=== PATIENT | male | born 1940 | race Caucasian/White ===

== ENCOUNTER 2018-12-22 11:11 | Inpatient (IN) | payer MEDICARE ==
[~2018-12-22] VITALS: Ht 180.3 cm; Wt 83.9 kg
--- NOTE | 2018-12-22 11:29 | PHYS DOC ---
Past History Past Medical History: A-Fib, CAD, COPD, Hypertension, Other Additional Past Medical Histor: sleep apnea Smoking: Quit Greater Than 1 Year Alcohol Use: None Drug Use: None Adult General Chief Complaint Chief Complaint: PSYCH EVALUATION HPI HPI Patient is a 78-year-old male presents for clearance for mental health. Patient has been going through some difficult times recently, his (of 3 years) left him approximately 4 weeks ago, and had to put his dog to sleep. Dog was 17 years old. He is currently living with family. He voices both self-harm and harm of others ideation. No specific target. No plan as to how he would hurt himself or others. Denies any hallucinations. Symptoms are moderate in intensity. Per daughter-in law, he has had increased sleeping, decreased mjsx-rohbqut-lye only showered once since living with son and boszudye-rk-uag, poorly compliant with home medication. Vzghrria-ty-vua also says has been gone for several months. [] Review of Systems Review of Systems Constitutional: Denies fever or chills [] Eyes: Denies change in visual acuity, redness, or eye pain [] HENT: Denies nasal congestion or sore throat [] Respiratory: Denies change in his chronic cough or shortness of breath [] Cardiovascular: No chest pain or palpitations[] GI: Denies abdominal pain, nausea, vomiting, bloody stools or diarrhea [] : Denies dysuria or hematuria [] Musculoskeletal: Denies back pain or joint pain [] Integument: Denies rash or skin lesions [] Neurologic: Denies headache, focal weakness or sensory changes [] Endocrine: Denies polyuria or polydipsia [] All other systems were reviewed and found to be within normal limits, except as documented in this note. Physical Exam Physical Exam Constitutional: Well developed, well nourished, no acute distress, non-toxic appearance. [] HENT: Normocephalic, atraumatic, bilateral external ears normal, oropharynx moist, no oral exudates, nose normal. [] Eyes: PERRLA, EOMI, conjunctiva normal, no discharge. [] Neck: Normal range of motion, no tenderness, supple, no stridor. [] Cardiovascular:Heart rate in the normal range with an irregular rhythm, no murmur [] Lungs & Thorax: Bilateral breath sounds clear to auscultation [] Abdomen: Bowel sounds normal, soft, no tenderness, no masses, no pulsatile masses. [] Skin: Warm, dry, no erythema, no rash. [] Back: No tenderness, no CVA tenderness. [] Extremities: No tenderness, no cyanosis, no clubbing, ROM intact, no edema. [] Neurologic: Alert and oriented X 3, normal motor function, normal sensory function, no focal deficits noted. [] Psychologic: Affect flat, judgement normal, mood depressed. [] EKG EKG EKG shows an irregular rhythm, rate of 85, normal axis, QTC of 490 ms, no ST elevations. No old EKG available for comparison. Interpreted by me at 1126[] Radiology/Procedures Radiology/Procedures [] Course & Med Decision Making Course & Med Decision Making Pertinent Labs and Imaging studies reviewed. (See chart for details) ED course: Patient arrived, was placed in bed, and tolerated exam well. He was given a meal tray which she tolerated without any nausea or vomiting. After the return of laboratory studies, these were discussed with patient and his bdaolzxm-er-zkp who voiced understanding. Klnmanlq-mq-twg says that he does not take his medicine on a regular basis. Consultation was made through tele-psych. 1330: Patient is questioned with tele-psychiatry. Report is made that."... He is unable to contract for safety at this time, has multiple risk factors, and should be transferred to an inpatient psychiatric facility for further evaluation and stabilization. He is willing to go voluntarily, but would meet criteria for involuntary admission if" (sic) 1430: Patient accepted by [facility] Medical decision making: Patient with evidence of depression as well as self- harm and harm of others ideation. He appears to be medically stable. He is noted to be mildly anemic but not grossly so. His INR is also noted to be elevated but this does not require urgent attention at this time.[] Dragon Disclaimer Dragon Disclaimer This electronic medical record was generated, in whole or in part, using a voice recognition dictation system. Departure Departure: Impression: Primary Impression: Suicidal ideation Additional Impressions: Atrial fibrillation Supratherapeutic INR Disposition: ADMITTED INPATIENT Admitting Physician: Other Condition: IMPROVED Referrals: EZEQUIEL GONZALES MD (PCP) Problem Qualifiers Additional Impressions: Atrial fibrillation Atrial fibrillation type: unspecified Qualified Codes: I48.91 - Unspecified atrial fibrillation JENNIFER BONNER DO Dec 22, 2018 11:28
[2018-12-22 12:03] LABS: BASO % 1 % (0-3); EOS # 0.1 x10^3/uL (0.0-0.7); EOS % 1 % (0-3); HEMATOCRIT 35.5 % (39.0-53.0); LYMPH # 0.9 x10^3/uL (1.0-4.8); LYMPH % 21 % (24-48); MEAN CORPUSCULAR HEMOGLOBIN 34 pg (25-35); MEAN CORPUSCULAR HGB CONC 34 g/dL (31-37); MEAN CORPUSCULAR VOLUME 100 fL (79-100); MONO # 0.4 x10^3/uL (0.0-1.1); MONO % 8 % (0-9); NEUT # 3.1 x10^3uL (1.8-7.7); NEUT % 69 % (31-73); PLATELET COUNT 103 x10^3/uL (140-400); RED BLOOD COUNT 3.54 x10^6/uL (4.30-5.70); RED CELL DISTRIBUTION WIDTH 15.1 % (11.5-14.5); WHITE BLOOD COUNT 4.5 x10^3/uL (4.0-11.0)
[2018-12-22 12:11] LABS: BARBITURATES NEG (NEG); BENZODIAZEPINES NEG (NEG); CANNABINOIDS NEG (NEG); COCAINE NEG (NEG); METHADONE NEG (NEG); OPIATES NEG (NEG); PHENCYCLIDINE NEG (NEG)
[2018-12-22 12:16] LABS: AMPHETAMINE/METHAMPHETAMINE NEG (NEG)
[2018-12-22 12:16] LABS: ACETAMIN < 2.0 mcg/mL (10-30); ALBUMIN 3.7 g/dL (3.4-5.0); ALBUMIN/GLOBULIN RATIO 1.2 (1.0-1.7); CALCIUM 8.7 mg/dL (8.5-10.1); CREATININE 1.2 mg/dL (0.7-1.3); ETHANOL < 10 mg/dL (0-10); GFR 58.3; MAGNESIUM 2.2 mg/dL (1.8-2.4); POTASSIUM 4.2 mmol/L (3.5-5.1); SALIC 1.1 mg/dL (2.8-20.0); TOTAL BILIRUBIN 0.7 mg/dL (0.2-1.0); TOTAL PROTEIN 6.8 g/dL (6.4-8.2)
[2018-12-22 12:20] LABS: BACTERIA,URINE 0 /HPF (0-FEW); BILIRUBIN,URINE SMALL (NEG); CLARITY,URINE HAZY; COLOR,URINE AMBER; GLUCOSE,URINE NEG (NEG); NITRITE,URINE NEG (NEG); RBC,URINE RARE /HPF (0-2); SQUAMOUS EPITHELIAL CELL,UR OCC /LPF; UROBILINOGEN,URINE 0.2 mg/dL (0.2 mg/dL); WBC,URINE 0 /HPF (0-4)
--- NOTE | 2018-12-22 15:45 | EKG ---
[address] [address] Test Date: 2018-12-22 Test Time: 11:24:30 Pat Name: RAINA ENCINAS Department: Room: Gender: M Campaign Advisor: RAY : 1940 Requested By: JENNIFER BONNER Order Number: [id number] Reading MD: Jose Ledesma Measurements Intervals [place] Rate: 85 P: OR: QRS: 33 QRSD: 90 T: 23 QT: 412 QTc: 490 Interpretive Statements ATRIAL FIBRILLATION LOW LIMB LEAD VOLTAGE PROLONGED QT Electronically Signed On 01-03-2019 16:10:08 CDT by Jose Ledesma
[2018-12-22 16:58] VITALS: BP 112/71
[2018-12-22] MEDS ORDERED: METHYL SALICYLATE/MENTHOL TOPICAL OINTMENT 57GM TUBE. TP PRN (17:30)
[2018-12-22] MEDS ORDERED: MAGNESIUM HYDROXIDE 2,400 MG/30 ML ORAL.SUSP. PO PRN (17:30)
[2018-12-22] MEDS ORDERED: ACETAMINOPHEN 325 MG TABLET PO PRN (17:30)
[2018-12-22] MEDS ORDERED: FURO-69 PO (18:32)
[2018-12-22] MEDS ORDERED: FLUT1BLS IH (18:32)
[2018-12-22] MEDS ORDERED: METO-247 PO (18:32)
[2018-12-22] MEDS ORDERED: traMADol 50 MG TABLET PO PRN (19:45)
[2018-12-22] MEDS ORDERED: NITROGLYCERIN SUBLINGUAL 0.4 MG BOTTLE OF 25. SL PRN (19:45)
[2018-12-22] MEDS ORDERED: TRAM50TA PO (19:48)
[2018-12-22] MEDS ORDERED: WARF4TAB64 PO (19:48)
[2018-12-22] MEDS ORDERED: RAMI2.5C2 PO (19:48)
[2018-12-22] MEDS ORDERED: WARF2TAB96 PO (19:48)
[2018-12-22] MEDS ORDERED: ALBU2.5V5 NEB (19:48)
[2018-12-22] MEDS ORDERED: NITR0.4T22 SL (19:48)
[2018-12-22] MEDS ORDERED: METF500T16 PO (19:48)
[2018-12-22] MEDS ORDERED: WARF-31 PO (19:48)
[2018-12-22] MEDS ORDERED: RANO10002 PO (19:48)
[2018-12-22] MEDS ORDERED: CRESTOR10 MG PO (19:48)
[2018-12-22] MEDS ORDERED: ALBUTEROL SULFATE 2.5 MG/3 ML NEBU. NEB SCH (21:00)
[2018-12-22] MEDS: METOPROLOL SUCC 24HR ER 50 MG TAB.ER.24H. PO SCH (21:29)
[2018-12-22] MEDS: ATORVASTATIN CALCIUM 20 MG TABLET PO SCH (21:30)
--- NOTE | 2018-12-22 21:45 | PDOC ---
Exam Note: Scott Note: Please also refer to the separate dictated note~for this date of service dictated separately. Discussed the patient with Nursing staff reviewed the chart.~Reviewed interim history and current functioning. Reviewed vital signs,~Labs/ Radiology~and current medications noted below. Continue current treatment with the changes noted in the dictated addendum note Assessment: Vital Signs/I&O: Vital Signs Date Time Temp Pulse Resp B/P (MAP) Pulse Ox O2 Delivery O2 Flow Rate FiO2 12/22/18 21:30 67 112/71 12/22/18 16:58 97.7 16 97 12/22/18 11:19 Room Air Labs: Laboratory Tests Test 12/22/18 11:25 12/22/18 11:44 Urine Collection Type Unknown Urine Color [place] Urine Clarity Hazy Urine pH 5.5 Urine Specific [place] 1.025 Urine Protein Trace (NEG-TRACE) Urine Glucose (UA) Neg mg/dL (NEG) Urine Ketones (Stick) 15 mg/dL (NEG) Urine Blood Neg (NEG) Urine Nitrite Neg (NEG) Urine Bilirubin Small (NEG) Urine Urobilinogen Dipstick 0.2 mg/dL (0.2 mg/dL) Urine Leukocyte Esterase Neg (NEG) Urine RBC Rare /HPF (0-2) Urine WBC 0 /HPF (0-4) Urine Squamous Epithelial Cells Occ /LPF Urine Bacteria 0 /HPF (0-FEW) Urine Mucus Mod /LPF Urine Opiates Screen Neg (NEG) Urine Methadone Screen Neg (NEG) Urine Barbiturates Neg (NEG) Urine Phencyclidine Screen Neg (NEG) Urine Amphetamine/Methamphetamine Neg (NEG) Urine Benzodiazepines Screen Neg (NEG) Urine Cocaine Screen Neg (NEG) Urine Cannabinoids Screen Neg (NEG) Urine Ethyl Alcohol Neg (NEG) White Blood Count 4.5 x10^3/uL (4.0-11.0) Red Blood Count 3.54 x10^6/uL (4.30-5.70) L Hemoglobin 12.0 g/dL (13.0-17.5) L Hematocrit 35.5 % (39.0-53.0) L Mean Corpuscular Volume 100 fL (79-100) Mean Corpuscular Hemoglobin 34 pg (25-35) Mean Corpuscular Hemoglobin Concent 34 g/dL (31-37) Red Cell Distribution Width 15.1 % (11.5-14.5) H Platelet Count 103 x10^3/uL (140-400) L Neutrophils (%) (Auto) 69 % (31-73) Lymphocytes (%) (Auto) 21 % (24-48) L Monocytes (%) (Auto) 8 % (0-9) Eosinophils (%) (Auto) 1 % (0-3) Basophils (%) (Auto) 1 % (0-3) Neutrophils # (Auto) 3.1 x10^3uL (1.8-7.7) Lymphocytes # (Auto) 0.9 x10^3/uL (1.0-4.8) L Monocytes # (Auto) 0.4 x10^3/uL (0.0-1.1) Eosinophils # (Auto) 0.1 x10^3/uL (0.0-0.7) Basophils # (Auto) 0.0 x10^3/uL (0.0-0.2) Prothrombin Time 41.9 SEC (9.4-11.4) H Prothrombin Time INR 4.0 (0.9-1.1) H Activated Partial Thromboplast Time 41 SEC (23-33) H Sodium Level 137 mmol/L (136-145) Potassium Level 4.2 mmol/L (3.5-5.1) Chloride Level 101 mmol/L (98-107) Carbon Dioxide Level 26 mmol/L (21-32) Anion Gap 10 (6-14) Blood Urea Nitrogen 18 mg/dL (8-26) Creatinine 1.2 mg/dL (0.7-1.3) Estimated GFR (Cockcroft-Gault) 58.3 BUN/Creatinine Ratio 15 (6-20) Glucose Level 105 mg/dL (70-99) H Calcium Level 8.7 mg/dL (8.5-10.1) Magnesium Level 2.2 mg/dL (1.8-2.4) Total Bilirubin 0.7 mg/dL (0.2-1.0) Aspartate Amino Transferase (AST) 23 U/L (15-37) Alanine Aminotransferase (ALT) 16 U/L (16-63) Alkaline Phosphatase 66 U/L (46-116) Total Protein 6.8 g/dL (6.4-8.2) Albumin 3.7 g/dL (3.4-5.0) Albumin/Globulin Ratio 1.2 (1.0-1.7) Salicylates Level 1.1 mg/dL (2.8-20.0) L Salicylate Last Dose Date Unknown Salicylate Last Dose Time Unknown Acetaminophen Level < 2.0 mcg/mL (10-30) L Acetaminophen Last Dose Date Unknown Acetaminophen Last Dose Time Unknown Ethyl Alcohol Level < 10 mg/dL (0-10) Current Medications: Meds: Current Medications Medications (Trade) Dose Ordered Sig/Emily Route PRN Reason Start Time Stop Time Status Last Admin Dose Admin Metoprolol Succinate (Toprol Xl) 100 mg QHS PO 12/22/18 21:00 12/22/18 21:30 Atorvastatin Calcium (Lipitor) 40 mg QHS PO 12/22/18 21:00 12/22/18 21:30 I have reviewed the current psychotropics carefully including drug interactions. Risk benefit ratio favors no change other than as noted in my dictated progress note. Diagnosis: Problems: (1) Anxiety disorder (2) Major depressive disorder, recurrent episode (3) Impulse control disorder RICCARDO YADAV MD Dec 22, 2018 21:45
[2018-12-22] MEDS: RANOLAZINE 500 MG TAB.ER.12H PO SCH (21:56)
[2018-12-23 02:09] LABS: HEMOGLOBIN A1C 5.6 % (4.8-5.6); THYROXINE 7.3 ug/dL (4.5-12.0)
[2018-12-23] MEDS: ALBUTEROL SULFATE 2.5 MG/3 ML NEBU. NEB SCH ×4 (04:53→20:33)
[2018-12-23] MEDS ORDERED: IPRATRPIUM/ALBUTEROL 0.5/2.5MG 3 ML NEBU. ONE (05:04)
[2018-12-23 06:31] VITALS: BP 113/70
[2018-12-23] MEDS: LISINOPRIL 5 MG TABLET. PO SCH (07:54)
[2018-12-23] MEDS: SERTRALINE 50 MG TABLET. PO SCH (07:54)
[2018-12-23] MEDS: FUROSEMIDE 20 MG TABLET PO SCH (07:55)
[2018-12-23] MEDS: RANOLAZINE 500 MG TAB.ER.12H PO SCH ×2 (07:56→19:37)
[2018-12-23] MEDS ORDERED: NON FORMULARY ITEM (Fluticasone/Vilanterol (Breo Ellipta 200-25 Mcg INH) 1 PUFF) IH SCH (09:00)
[2018-12-23] MEDS ORDERED: FLU VAX QS 2019-20 (36MOS+)/PF 0.5 ML SYRINGE. VAX IM ONE (09:00)
[2018-12-23] MEDS: BUDESONIDE 0.5 MG/2 ML NEBU NEB SCH ×2 (11:07→20:33)
[2018-12-23 13:13] LABS: THYROID STIM HORMONE (TSH) 1.242 uIU/mL (0.358-3.740)
--- NOTE | 2018-12-23 13:17 | HP ---
ADMIT DATE: 12/22/2018 PSYCHIATRIC ADMISSION HISTORY AND EVALUATION This is a late entry, date of service 12/22, covers elements not covered in my initial note. IDENTIFYING DATA: The patient is an 78-year-old male referred from the Emergency Room at [facility] after he had a telepsychiatry consultation on account of worsening symptoms of depression with suicidal ideation within the context of psychosocial stressors of separation from his pending a divorce. Initially, the family had contacted us concerned about his suicidal ideation and worsening symptoms of depression as the patient had moved in with his son in [place], [place] and was voicing suicidal ideation consequent to the separation and pending divorce. He then presented to the Emergency Room at [facility], was medically cleared, telepsychiatry recommended inpatient psychiatric stabilization. CHIEF COMPLAINT: "Yes, I have been depressed. She was much younger than me and we had agreed that I could not do activities and things like she wanted to and that she should find someone else, but it has been very difficult. Yes, I said I wanted to end my life." HISTORY OF PRESENT ILLNESS: The patient relates symptoms of depression, feeling hopeless, helpless, worthless, anger, irritability, sleep disturbance consequent to the above stressors in his own failing health. No clear history of bipolar disorder or homicidal ideation. No clear psychotic symptoms. He does have some short-term memory deficits, but reasonably cognitively intact. PAST PSYCHIATRIC HISTORY: As above. MEDICAL HISTORY: COPD, asthma, coronary artery disease, atrial fibrillation, pacemaker, arthritis, hearing loss, CHF, obesity, obstructive sleep apnea with CPAP and oxygen at night. ACCU-CHEKS: None. DIET: Cardiac. MEDICATIONS: Takes it whole. AMBULATES: Uses cane at home, independent with walker. UA 12/22 was negative. ALLERGIES: Negative. FAMILY HISTORY: Noncontributory. SOCIAL HISTORY: He does admit to using heavy alcohol at a much younger age, but nothing recently. No blackouts, DUIs, DTs or shakes. No physical, sexual or elder abuse history is noted. Not known to be a perpetrator. REACTION TO HOSPITALIZATION: The patient accepting of it. ASSETS: Supportive family, reasonably cognitively intact. MENTAL STATUS EXAMINATION: The patient was seen individually evening of 12/22. He is reasonably oriented. Speech coherent, abstraction fair, computation impaired, language function intact, attention span short. Mood and affect depressed, withdrawn. He denies active thoughts of wanting to end his life. He talked at length about working at the [employer] until he retired approximately in 1993. LABORATORY DATA: Reviewed. IMPRESSION: Major depressive disorder, recurrent with suicidal ideation; anxiety disorder, unspecified; mild cognitive impairment. Rest as above. PLAN: Admit to Geropsychiatry Unit at [facility]. I will see the patient daily individually from a psychiatric standpoint. Medical followup with Dr. Willard. We will start Zoloft 50 mg a day for mood symptoms. Make further adjustments as clinically indicated. May use Remeron or trazodone if insomnia is problematic. ESTIMATED LENGTH OF STAY: 10-12 days. DISPOSITION: Plans back with family with outpatient treatment at the [facility] in [place]. MAN Renetta YADAV MD DR: MANPREET/alejandro JOB#: [id number] / [id number]
[2018-12-23] MEDS ORDERED: WARFARIN 5 MG TABLET. PO SCH (16:00)
[2018-12-23] MEDS: metFORMIN 500 MG TABLET PO SCH (17:00)
[2018-12-23] MEDS ORDERED: CHOLECALCIFEROL (VITAMIN D3) 50,000 UNIT CAPSULE PO SCH (17:15)
[2018-12-23 17:16] VITALS: BP 117/74
[2018-12-23] MEDS: ATORVASTATIN CALCIUM 20 MG TABLET PO SCH (19:38)
[2018-12-23] MEDS: METOPROLOL SUCC 24HR ER 50 MG TAB.ER.24H. PO SCH (19:38)
--- NOTE | 2018-12-23 22:08 | PDOC ---
Exam Note: Scott Note: Please also refer to the separate dictated note~for this date of service dictated separately.~Patient seen individually. Discussed the patient with Nursing staff reviewed the chart.~Reviewed interim history and current functioning. Reviewed vital signs,~Labs/ Radiology~and current medications noted below. Continue current treatment with the changes noted in the dictated addendum note Assessment: Vital Signs/I&O: Vital Signs Date Time Temp Pulse Resp B/P (MAP) Pulse Ox O2 Delivery O2 Flow Rate FiO2 12/23/18 20:35 95 Room Air 12/23/18 19:38 100 117/74 12/23/18 17:16 97.1 16 12/23/18 11:12 1.5 I & O 12/22/18 12/22/18 12/23/18 15:00 23:00 07:00 Intake Total 240 ml 120 ml Balance 240 ml 120 ml Current Medications: Meds: Current Medications Medications (Trade) Dose Ordered Sig/Emily Route PRN Reason Start Time Stop Time Status Last Admin Dose Admin Furosemide (Lasix) 20 mg DAILY PO 12/23/18 09:00 12/23/18 07:55 Metformin HCl (Glucophage) 500 mg DAILYWSUP PO 12/23/18 17:00 12/23/18 18:05 Lisinopril (Prinivil) 5 mg DAILY PO 12/23/18 09:00 12/23/18 07:55 Albuterol Sulfate (Ventolin) 2.5 mg RTQID NEB 12/23/18 08:00 12/23/18 20:35 Budesonide (Pulmicort) 0.5 mg RTBID NEB 12/23/18 08:00 12/23/18 20:35 Sertraline HCl (Zoloft) 50 mg DAILY PO 12/23/18 09:00 12/23/18 07:55 Influenza Virus Vaccine Quadrival (Afluria Quad 2019-20 (3yr Up) Syringe) 0.5 ml ONCE ONCE VAX IM 12/23/18 09:00 12/23/18 09:01 DC 12/23/18 11:08 Warfarin Sodium (Coumadin Per Pharmacy) 1 each PRN DAILY PRN MC SEE COMMENTS 12/23/18 13:45 12/23/18 14:03 I have reviewed the current psychotropics carefully including drug interactions. Risk benefit ratio favors no change other than as noted in my dictated progress note. Diagnosis: Problems: (1) Anxiety disorder (2) Major depressive disorder, recurrent episode (3) Impulse control disorder RICCARDO YADAV MD Dec 23, 2018 22:08
--- NOTE | 2018-12-24 02:48 | CONS ---
DATE OF CONSULTATION: HISTORY OF PRESENT ILLNESS: The patient is an 78-year-old male patient referred from the Emergency Room of [facility] after he had a tele-psychiatry consultation in account of worsening symptoms of depression, suicidal ideation within the context of psychosocial stressors of separation from his and pending divorce. The patient stated that he has been depressed. His is much younger than him and they agreed that he could not do activities and things like she wanted and that she would find someone else, but obviously has been very difficult for him and he did state that he did indeed wanted to end his life. PAST MEDICAL HISTORY: Significant for COPD, bronchial asthma, coronary artery disease, atrial fibrillation with congestive heart failure, morbid obesity, obstructive sleep apnea, on CPAP. He also has generalized osteoarthritis and underwent permanent pacemaker placement. ALLERGIES: He has no known drug allergies. FAMILY HISTORY: Noncontributory. SOCIAL HISTORY: He apparently in the process of his and now moved to live with his son in [place], [place]. He used to be a heavy alcohol drinker at younger age, but does nothing recently. He does not smoke or use any drugs. ALLERGIES: He has no known drug allergies. MEDICATIONS: He is currently on following medications: He is on albuterol sulfate 2.5 mg by nebulizer 3 times a day, warfarin 2 mg daily and warfarin 4 mg. He continues to be on ranolazine for Ranexa 1000 mg twice a day, Crestor 10 mg at bedtime, nitroglycerin 0.4 mg sublingual every 5 minutes x3. He is also on metoprolol succinate 100 mg extended release 1 tablet once a day and ramipril 2.5 mg daily, tramadol 50 mg every 6 hours, furosemide 20 mg once a day, fluticasone for Breo Ellipta 1 inhalation once a day and metformin 500 mg daily. REVIEW OF SYSTEMS: As per history of present illness. PHYSICAL EXAMINATION GENERAL: When I examined him, patient looked well and was clearly in no apparent respiratory distress. He was somewhat pale, but no jaundice, cyanosis, lymphadenopathy or thyromegaly. No jugular venous distention, but marked bilateral lower limb edema. In fact, the swelling extends all the way to his sacrum. HEAD, EYES, EARS, NOSE AND THROAT: Showed normocephalic, atraumatic. NECK: Supple. HEART: Showed normal first and second heart sounds. No murmurs. CHEST: Clear to auscultation. No crepitation or rhonchi. ABDOMEN: Distended, soft, nontender. No guarding or rigidity. No organomegaly. All hernial orifice intact. Bowel sounds normal. NEUROLOGIC: He is awake, alert, responding appropriately. All cranial nerves intact. EXTREMITIES: He moves extremities without difficulty, ambulates with a walker. LABORATORY DATA: Showed a white cell count of 4500, hemoglobin 12, hematocrit 36, MCV 100, and platelet count of 103,000. His prothrombin time was 41.9, INR of 4, aPTT was 41. His chemistry showed serum sodium 137, potassium 4.2, chloride 101, bicarbonate 26, anion gap of 10, BUN 18, creatinine 1.2, estimated GFR was 58 mL per minute, his glucose 105. Hemoglobin A1c was 5.6%. His calcium was 8.7, magnesium 2.2. Serum iron 68, TIBC was 293 and total iron saturation was 23. Total bilirubin, AST, ALT, alkaline phosphatase were normal. Total protein 6.8, albumin was 3.7. His 25-hydroxyvitamin D was 23. However, his TSH, T3 and T4 are all within normal range. His urinalysis showed the urine was hazy with a pH of 5.5, specific gravity 1.025. There was trace of protein, negative for glucose, trace of ketones, negative for blood, nitrite and leukocyte esterase. There are no rbc's, no wbc's, and no bacteria. His tox screen was essentially negative. His treponema pallidum antibodies were nonreactive. IMPRESSION: In summary, patient was admitted on account of worsening symptoms of depression with suicidal ideation within the context of psychosocial stressors, separation from his pending a divorce. [facility]. Medically, he has a multitude of medical problems including chronic obstructive pulmonary disease, morbid obesity, obstructive sleep apnea, on CPAP. He is known to have coronary artery disease, atrial fibrillation and congestive heart failure, has also generalized osteoarthritis. Clinically, he seemed to be in congestive heart failure, has bilateral basal crepitation and severe generalized anasarca. His vital signs seem to be all stable as well as his chemistry. He does have vitamin D deficiency for which I started him on cholecalciferol 50,000 international unit once a week. He is only on 20 mg of Lasix that could definitely increase. PLAN: My plan is to continue with his current medication for now. His INR is supratherapeutic, so Coumadin will be on hold and the pharmacy will adjust Coumadin as needed. Thank you Dr. Craig for allowing me to participate in the care of this patient. WILLIE HERRERA MD DR: SAEID/alejandro JOB#: [id number] / [id number]
[2018-12-24 05:06] VITALS: BP 119/71
[2018-12-24] MEDS: ALBUTEROL SULFATE 2.5 MG/3 ML NEBU. NEB SCH ×4 (05:12→20:20)
[2018-12-24] MEDS: LISINOPRIL 5 MG TABLET. PO SCH (08:06)
[2018-12-24] MEDS: RANOLAZINE 500 MG TAB.ER.12H PO SCH ×2 (08:06→20:23)
[2018-12-24] MEDS: SERTRALINE 50 MG TABLET. PO SCH (08:06)
[2018-12-24] MEDS: FUROSEMIDE 20 MG TABLET PO SCH (08:06)
[2018-12-24] MEDS: CHOLECALCIFEROL (VITAMIN D3) 50,000 UNIT CAPSULE PO SCH (08:08)
[2018-12-24] MEDS: BUDESONIDE 0.5 MG/2 ML NEBU NEB SCH ×2 (10:20→20:20)
[2018-12-24 16:04] VITALS: BP 132/76
[2018-12-24] MEDS: metFORMIN 500 MG TABLET PO SCH (17:00)
[2018-12-24] MEDS: ATORVASTATIN CALCIUM 20 MG TABLET PO SCH (20:21)
[2018-12-24] MEDS: METOPROLOL SUCC 24HR ER 50 MG TAB.ER.24H. PO SCH (20:21)
--- NOTE | 2018-12-24 23:08 | PDOC ---
Exam Note: Scott Note: Please also refer to the separate dictated note~for this date of service dictated separately.~Patient seen individually. Discussed the patient with Nursing staff reviewed the chart.~Reviewed interim history and current functioning. Reviewed vital signs,~Labs/ Radiology~and current medications noted below. Continue current treatment with the changes noted in the dictated addendum note Assessment: Vital Signs/I&O: Vital Signs Date Time Temp Pulse Resp B/P (MAP) Pulse Ox O2 Delivery O2 Flow Rate FiO2 12/24/18 20:23 93 132/76 12/24/18 16:04 98.0 20 99 12/24/18 15:48 Room Air 12/23/18 11:12 1.5 I & O 12/23/18 12/23/18 12/24/18 15:00 23:00 07:00 Intake Total 480 ml 240 ml 120 ml Balance 480 ml 240 ml 120 ml Labs: Laboratory Tests Test 12/24/18 17:04 Prothrombin Time 25.9 SEC (9.4-11.4) H Prothrombin Time INR 2.5 (0.9-1.1) H Current Medications: Meds: Current Medications Medications (Trade) Dose Ordered Sig/Emily Route PRN Reason Start Time Stop Time Status Last Admin Dose Admin Vitamin D (Vitamin D3) 50,000 unit WEEKLY PO 12/24/18 09:00 12/24/18 08:08 I have reviewed the current psychotropics carefully including drug interactions. Risk benefit ratio favors no change other than as noted in my dictated progress note. Diagnosis: Problems: (1) Anxiety disorder (2) Major depressive disorder, recurrent episode (3) Impulse control disorder RICCARDO YADAV MD Dec 24, 2018 23:08
[2018-12-25] MEDS: ALBUTEROL SULFATE 2.5 MG/3 ML NEBU. NEB SCH ×4 (05:00→19:23)
--- NOTE | 2018-12-25 05:37 | PN ---
DATE: 12/23/2018 PSYCHIATRIC PROGRESS NOTE This is a late entry, date of service 12/23/2018, covers elements not covered in my initial note. SUBJECTIVE: I met with the patient evening of 12/23/2018. The patient slept 4-1/4 hours previous night. He has been somewhat withdrawn, isolative, but denies active suicidal ideation. REVIEW OF SYSTEMS: Positive for some tiredness, difficulty with his breathing and family has brought in his CPAP machine. REVIEW OF SYSTEMS: No CV, , GI, ENT system symptoms on review. MENTAL STATUS EXAMINATION: The patient is reasonably oriented. Speech is coherent, abstraction fair, computation impaired, language function intact, attention span short. Mood and affect, still depressed and anxious. No active suicidal ideation. LABORATORY DATA: Reviewed. IMPRESSION: Major depressive disorder, recurrent; anxiety disorder, unspecified. Rest unchanged. PLAN: The patient has been started on Zoloft 50 mg a day. We will adjust this gradually. Consider augmentation with Abilify if needed. Rest unchanged for now. RICCARDO YADAV MD DR: MANPREET/alejandro JOB#: [id number] / [id number]
[2018-12-25 06:33] VITALS: BP 133/81
[2018-12-25] MEDS: FUROSEMIDE 20 MG TABLET PO SCH (07:56)
[2018-12-25] MEDS: LISINOPRIL 5 MG TABLET. PO SCH (07:56)
[2018-12-25] MEDS: RANOLAZINE 500 MG TAB.ER.12H PO SCH ×2 (08:01→20:16)
[2018-12-25] MEDS ORDERED: FLUoxetine HCL 10 MG CAPSULE PO SCH (09:00)
[2018-12-25] MEDS: BUDESONIDE 0.5 MG/2 ML NEBU NEB SCH ×2 (09:37→19:23)
[2018-12-25] MEDS: MAG HYDROX/AL HYDROX/SIMETH 30 ML ORAL.SUSP PO PRN (11:45)
[2018-12-25] MEDS: PANTOPRAZOLE 40 MG TABLET. PO SCH (12:00)
[2018-12-25 15:59] VITALS: BP 103/65
[2018-12-25] MEDS ORDERED: WARFARIN 5 MG TABLET. PO ONE (16:00)
[2018-12-25] MEDS: metFORMIN 500 MG TABLET PO SCH (17:00)
[2018-12-25 20:13] VITALS: BP 121/81
[2018-12-25] MEDS: ATORVASTATIN CALCIUM 20 MG TABLET PO SCH (20:14)
[2018-12-25] MEDS: METOPROLOL SUCC 24HR ER 50 MG TAB.ER.24H. PO SCH (20:14)
--- NOTE | 2018-12-25 21:42 | PDOC ---
Exam Note: Scott Note: Please also refer to the separate dictated note~for this date of service dictated separately.~Patient seen individually. Discussed the patient with Nursing staff reviewed the chart.~Reviewed interim history and current functioning. Reviewed vital signs,~Labs/ Radiology~and current medications noted below. Continue current treatment with the changes noted in the dictated addendum note Assessment: Vital Signs/I&O: Vital Signs Date Time Temp Pulse Resp B/P (MAP) Pulse Ox O2 Delivery O2 Flow Rate FiO2 12/25/18 20:16 93 121/81 12/25/18 19:36 97 Room Air 12/25/18 15:59 97.9 18 12/25/18 15:27 1.5 I & O 12/24/18 12/24/18 12/25/18 15:00 23:00 07:00 Intake Total 1080 ml 480 ml Balance 1080 ml 480 ml Labs: Laboratory Tests Test 12/25/18 07:06 Prothrombin Time 25.8 SEC (9.4-11.4) H Prothrombin Time INR 2.5 (0.9-1.1) H Current Medications: Meds: Current Medications Medications (Trade) Dose Ordered Sig/Emily Route PRN Reason Start Time Stop Time Status Last Admin Dose Admin Fluoxetine HCl (PROzac) 10 mg DAILY PO 12/25/18 09:00 12/25/18 19:45 DC 12/25/18 08:01 Warfarin Sodium (Coumadin) 5 mg 1X WARF ONCE PO 12/25/18 16:00 12/25/18 16:01 DC 12/25/18 17:42 Pantoprazole Sodium (Protonix) 40 mg DAILYAC PO 12/25/18 12:00 12/25/18 15:00 I have reviewed the current psychotropics carefully including drug interactions. Risk benefit ratio favors no change other than as noted in my dictated progress note. Diagnosis: Problems: (1) Anxiety disorder (2) Major depressive disorder, recurrent episode (3) Impulse control disorder RICCARDO YADAV MD Dec 25, 2018 21:42
[2018-12-26] MEDS: BUDESONIDE 0.5 MG/2 ML NEBU NEB SCH ×2 (05:05→20:15)
[2018-12-26] MEDS: ALBUTEROL SULFATE 2.5 MG/3 ML NEBU. NEB SCH ×4 (05:06→20:15)
[2018-12-26 06:14] VITALS: BP 122/79
[2018-12-26] MEDS: PANTOPRAZOLE 40 MG TABLET. PO SCH (08:05)
[2018-12-26] MEDS: LISINOPRIL 5 MG TABLET. PO SCH (08:06)
[2018-12-26] MEDS: RANOLAZINE 500 MG TAB.ER.12H PO SCH ×2 (08:06→19:41)
[2018-12-26] MEDS: FUROSEMIDE 20 MG TABLET PO SCH (08:06)
[2018-12-26] MEDS ORDERED: WARFARIN 5 MG TABLET. PO ONE (16:00)
[2018-12-26 16:16] VITALS: BP 116/75
[2018-12-26] MEDS: metFORMIN 500 MG TABLET PO SCH (17:16)
[2018-12-26 19:33] VITALS: BP 153/95
[2018-12-26] MEDS: METOPROLOL SUCC 24HR ER 50 MG TAB.ER.24H. PO SCH (19:34)
[2018-12-26] MEDS: ATORVASTATIN CALCIUM 20 MG TABLET PO SCH (19:35)
[2018-12-26] MEDS: FLUoxetine HCL 10 MG CAPSULE PO SCH (19:37)
--- NOTE | 2018-12-26 21:45 | PDOC ---
Exam Note: Scott Note: Please also refer to the separate dictated note~for this date of service dictated separately.~Patient seen individually. Discussed the patient with Nursing staff reviewed the chart.~Reviewed interim history and current functioning. Reviewed vital signs,~Labs/ Radiology~and current medications noted below. Continue current treatment with the changes noted in the dictated addendum note Assessment: Vital Signs/I&O: Vital Signs Date Time Temp Pulse Resp B/P (MAP) Pulse Ox O2 Delivery O2 Flow Rate FiO2 12/26/18 20:21 97 Room Air 12/26/18 19:41 74 153/95 12/26/18 19:33 98.2 18 12/26/18 16:16 2.0 I & O 12/25/18 12/25/18 12/26/18 15:00 23:00 07:00 Intake Total 600 ml 240 ml Balance 600 ml 240 ml Labs: Laboratory Tests Test 12/26/18 06:03 Prothrombin Time 22.2 SEC (9.4-11.4) H Prothrombin Time INR 2.1 (0.9-1.1) H Current Medications: Meds: Current Medications Medications (Trade) Dose Ordered Sig/Emily Route PRN Reason Start Time Stop Time Status Last Admin Dose Admin Fluoxetine HCl (PROzac) 10 mg HS PO 12/26/18 21:00 12/26/18 19:38 Warfarin Sodium (Coumadin) 5 mg 1X WARF ONCE PO 12/26/18 16:00 12/26/18 16:01 DC 12/26/18 17:17 I have reviewed the current psychotropics carefully including drug interactions. Risk benefit ratio favors no change other than as noted in my dictated progress note. Diagnosis: Problems: (1) Anxiety disorder (2) Major depressive disorder, recurrent episode (3) Impulse control disorder RICCARDO YADAV MD Dec 26, 2018 21:45
--- NOTE | 2018-12-27 04:11 | PN ---
DATE: 12/25/2018 PSYCHIATRIC PROGRESS NOTE This late entry 12/25/2018 covers the elements not covered in my initial note. SUBJECTIVE: I met with the patient in the evening. The patient slept 6-1/4 hours previous night. He complains of tiredness. States this is because of the Prozac. He takes once a day. We will change it to the nighttime. REVIEW OF SYSTEMS: No CV, , pulmonary, eye, ENT system symptoms on review. MENTAL STATUS EXAM: Reasonably oriented. Speech is coherent, abstraction fair, computation impaired, language function intact, attention span short. Mood and affect somewhat withdrawn. LABORATORY DATA: Reviewed. IMPRESSION: Unchanged from initial note. PLAN: No change from initial note. MAN Renetta YADAV MD DR: MANPREET/alejandro JOB#: [id number] / [id number]
[2018-12-27] MEDS: ALBUTEROL SULFATE 2.5 MG/3 ML NEBU. NEB SCH ×4 (05:36→22:50)
--- NOTE | 2018-12-27 05:49 | PN ---
DATE: 12/24/2018 PSYCHIATRIC PROGRESS NOTE This late entry 12/24/2018 covers elements not covered in my initial note. SUBJECTIVE: I met with the patient in the evening. The patient slept 6-1/4 hours previous night. He has complained of some GI problems, remains somatically preoccupied. Ambulates independent with walker. He appears depressed, calm, compliant and cooperative per nursing report. REVIEW OF SYSTEMS: Positive for some GI symptoms, which he attributes to the Zoloft. No CV, , pulmonary, eye system symptoms on review. MENTAL STATUS EXAM: Reasonably oriented. Speech has some latency, coherent, somatically preoccupied. Abstraction fair, computation impaired, language function intact. Mood and affect still depressed. No active suicidal ideation. LABORATORY DATA: Reviewed. IMPRESSION: Major depressive disorder, recurrent; anxiety disorder, unspecified. PLAN: Change the Zoloft to Prozac 10 mg a day. Continue rest unchanged for now. MAN Renetta YADAV MD DR: MANPREET/alejandro JOB#: [id number] / [id number]
[2018-12-27 06:15] VITALS: BP 110/74
[2018-12-27] MEDS: LISINOPRIL 5 MG TABLET. PO SCH (08:50)
[2018-12-27] MEDS: RANOLAZINE 500 MG TAB.ER.12H PO SCH ×2 (08:50→19:43)
[2018-12-27] MEDS: PANTOPRAZOLE 40 MG TABLET. PO SCH (08:50)
[2018-12-27] MEDS: FUROSEMIDE 20 MG TABLET PO SCH (08:51)
[2018-12-27] MEDS: BUDESONIDE 0.5 MG/2 ML NEBU NEB SCH ×2 (10:41→22:50)
[2018-12-27] MEDS ORDERED: WARFARIN 5 MG TABLET. PO ONE (16:00)
[2018-12-27] MEDS: metFORMIN 500 MG TABLET PO SCH (16:54)
[2018-12-27 17:01] VITALS: BP 128/81
[2018-12-27] MEDS ORDERED: POLYETHYLENE GLYCOL 3350 17 GM PACKET. PO PRN (17:30)
[2018-12-27] MEDS: FLUoxetine HCL 10 MG CAPSULE PO SCH (19:42)
[2018-12-27] MEDS: ATORVASTATIN CALCIUM 20 MG TABLET PO SCH (19:42)
[2018-12-27] MEDS: METOPROLOL SUCC 24HR ER 50 MG TAB.ER.24H. PO SCH (19:43)
--- NOTE | 2018-12-27 22:10 | PDOC ---
Exam Note: Scott Note: Please also refer to the separate dictated note~for this date of service dictated separately.~Patient seen individually. Discussed the patient with Nursing staff reviewed the chart.~Reviewed interim history and current functioning. Reviewed vital signs,~Labs/ Radiology~and current medications noted below. Continue current treatment with the changes noted in the dictated addendum note Assessment: Vital Signs/I&O: Vital Signs Date Time Temp Pulse Resp B/P (MAP) Pulse Ox O2 Delivery O2 Flow Rate FiO2 12/27/18 20:40 99 Home CPAP 1.5 12/27/18 19:43 75 128/81 12/27/18 17:01 98.1 16 I & O 12/26/18 12/26/18 12/27/18 15:00 23:00 07:00 Intake Total 840 ml 360 ml 120 ml Balance 840 ml 360 ml 120 ml Labs: Laboratory Tests Test 12/27/18 06:45 Prothrombin Time 22.1 SEC (9.4-11.4) H Prothrombin Time INR 2.1 (0.9-1.1) H Current Medications: Meds: Current Medications Medications (Trade) Dose Ordered Sig/Emily Route PRN Reason Start Time Stop Time Status Last Admin Dose Admin Warfarin Sodium (Coumadin) 5 mg 1X WARF ONCE PO 12/27/18 16:00 12/27/18 16:01 DC 12/27/18 16:55 Polyethylene Glycol (miraLAX) 17 gm PRN DAILY PRN PO CONSTIPATION 12/27/18 17:30 12/27/18 17:40 I have reviewed the current psychotropics carefully including drug interactions. Risk benefit ratio favors no change other than as noted in my dictated progress note. Diagnosis: Problems: (1) Anxiety disorder (2) Major depressive disorder, recurrent episode (3) Impulse control disorder RICCARDO YADAV MD Dec 27, 2018 22:10
--- NOTE | 2018-12-28 02:24 | PN ---
DATE: 12/26/2018 PSYCHIATRIC PROGRESS NOTE This late entry, 12/26/2018, covers elements not covered in my initial note. SUBJECTIVE: I met with the patient in the evening of 12/26/2018 at length. Overall, per nursing report, the patient has done reasonably well. He denies active suicidal ideation, but when I questioned him, he complained of daytime tiredness. He believes the Prozac 10 mg a day makes this happen and we will change it to bedtime. He gets quite anxious and obsesses about things and consequently magnifies it and we addressed at some length individually. REVIEW OF SYSTEMS: Other than this, no CV, , pulmonary, eye system symptoms on review. MENTAL STATUS EXAM: Oriented reasonably. Speech is coherent, abstraction fair, computation impaired, language function intact, attention span short. Mood and affect still depressed, anxious. No active suicidal ideation. LABORATORY DATA: Reviewed. IMPRESSION: Major depressive disorder with psychotic features, in partial remission; anxiety disorder, unspecified. Rest unchanged. PLAN: Change the Prozac to bedtime, 10 mg. Continue rest unchanged for now. Received informed consent. MAN Renetta YADAV MD DR: MANPREET/alejandro JOB#: [id number] / [id number]
[2018-12-28] MEDS: ALBUTEROL SULFATE 2.5 MG/3 ML NEBU. NEB SCH ×4 (06:14→20:00)
[2018-12-28 06:26] VITALS: BP 104/71
[2018-12-28] MEDS: PANTOPRAZOLE 40 MG TABLET. PO SCH (07:48)
[2018-12-28] MEDS: FUROSEMIDE 20 MG TABLET PO SCH (07:48)
[2018-12-28] MEDS: LISINOPRIL 5 MG TABLET. PO SCH (07:49)
[2018-12-28] MEDS: RANOLAZINE 500 MG TAB.ER.12H PO SCH ×2 (07:49→20:14)
[2018-12-28] MEDS: MAG HYDROX/AL HYDROX/SIMETH 30 ML ORAL.SUSP PO PRN (08:58)
[2018-12-28] MEDS: BUDESONIDE 0.5 MG/2 ML NEBU NEB SCH ×2 (10:03→20:00)
[2018-12-28] MEDS ORDERED: WARFARIN 5 MG TABLET. PO ONE (16:00)
[2018-12-28 17:19] VITALS: BP 105/68
[2018-12-28] MEDS: metFORMIN 500 MG TABLET PO SCH (17:32)
[2018-12-28] MEDS: FLUoxetine HCL 10 MG CAPSULE PO SCH (20:12)
[2018-12-28] MEDS: ATORVASTATIN CALCIUM 20 MG TABLET PO SCH (20:13)
[2018-12-28] MEDS: METOPROLOL SUCC 24HR ER 50 MG TAB.ER.24H. PO SCH (20:13)
--- NOTE | 2018-12-28 21:54 | PDOC ---
Exam Note: Scott Note: Please also refer to the separate dictated note~for this date of service dictated separately.~Patient seen individually. Discussed the patient with Nursing staff reviewed the chart.~Reviewed interim history and current functioning. Reviewed vital signs,~Labs/ Radiology~and current medications noted below. Continue current treatment with the changes noted in the dictated addendum note Assessment: Vital Signs/I&O: Vital Signs Date Time Temp Pulse Resp B/P (MAP) Pulse Ox O2 Delivery O2 Flow Rate FiO2 12/28/18 20:14 81 105/68 12/28/18 17:19 97.8 16 100 12/28/18 15:30 Home CPAP 1.5 I & O 12/27/18 12/27/18 12/28/18 15:00 23:00 07:00 Intake Total 960 ml 480 ml 80 ml Balance 960 ml 480 ml 80 ml Labs: Laboratory Tests Test 12/28/18 06:41 Prothrombin Time 24.6 SEC (9.4-11.4) H Prothrombin Time INR 2.4 (0.9-1.1) H Current Medications: Meds: Current Medications Medications (Trade) Dose Ordered Sig/Emily Route PRN Reason Start Time Stop Time Status Last Admin Dose Admin Warfarin Sodium (Coumadin) 5 mg 1X WARF ONCE PO 12/28/18 16:00 12/28/18 16:01 DC 12/28/18 17:32 I have reviewed the current psychotropics carefully including drug interactions. Risk benefit ratio favors no change other than as noted in my dictated progress note. Diagnosis: Problems: (1) Anxiety disorder (2) Major depressive disorder, recurrent episode (3) Impulse control disorder RICCARDO YADAV MD Dec 28, 2018 21:54
--- NOTE | 2018-12-29 03:25 | PN ---
DATE: 12/27/2018 PSYCHIATRIC PROGRESS NOTE This late entry, 12/27/2018, covers elements not covered in my initial note. SUBJECTIVE: I met with the patient in the evening of 12/27/2018. The patient slept 7 hours previous night. Per nursing report, he has been anxious, demanding. At 8:00 in the morning, he wanted a phone call and when nursing staff were not able to comply, he was demeaning with nursing staff per nursing report. Previous night, he was telling the nursing staff that they should make sure his medications were being dispensed correctly. He remains somewhat obsessive, anxious, little paranoid. We will check labs morning of 12/28/2018. REVIEW OF SYSTEMS: No CV, , pulmonary, eye, ENT system symptoms on review. MENTAL STATUS EXAM: Reasonably oriented. Speech is coherent, abstraction fair, computation impaired, language function intact, attention span short. Mood and affect still depressed, anxious, somewhat paranoid. No suicidal ideation. LABORATORY DATA: Reviewed. IMPRESSION: Unchanged from initial note. PLAN: No change from initial note. RICCARDO YADAV MD DR: MANPREET/alejandro JOB#: [id number] / [id number]
[2018-12-29] MEDS: MAG HYDROX/AL HYDROX/SIMETH 30 ML ORAL.SUSP PO PRN (05:03)
[2018-12-29] MEDS: PANTOPRAZOLE 40 MG TABLET. PO SCH (05:03)
[2018-12-29] MEDS: ALBUTEROL SULFATE 2.5 MG/3 ML NEBU. NEB SCH ×4 (05:57→20:00)
[2018-12-29 06:40] VITALS: BP 113/73
[2018-12-29 07:44] LABS: BASO % 1 % (0-3); EOS # 0.1 x10^3/uL (0.0-0.7); EOS % 2 % (0-3); HEMATOCRIT 35.4 % (39.0-53.0); HEMOGLOBIN 12.1 g/dL (13.0-17.5); LYMPH # 0.8 x10^3/uL (1.0-4.8); LYMPH % 24 % (24-48); MEAN CORPUSCULAR HEMOGLOBIN 34 pg (25-35); MEAN CORPUSCULAR HGB CONC 34 g/dL (31-37); MEAN CORPUSCULAR VOLUME 100 fL (79-100); MONO # 0.3 x10^3/uL (0.0-1.1); MONO % 9 % (0-9); NEUT # 2.2 x10^3uL (1.8-7.7); NEUT % 63 % (31-73); PLATELET COUNT 106 x10^3/uL (140-400); RED BLOOD COUNT 3.54 x10^6/uL (4.30-5.70); RED CELL DISTRIBUTION WIDTH 15.1 % (11.5-14.5); WHITE BLOOD COUNT 3.5 x10^3/uL (4.0-11.0)
[2018-12-29 07:56] LABS: ALBUMIN 3.8 g/dL (3.4-5.0); ALBUMIN/GLOBULIN RATIO 1.4 (1.0-1.7); CALCIUM 8.6 mg/dL (8.5-10.1); CREATININE 1.1 mg/dL (0.7-1.3); GFR 64.4; POTASSIUM 4.2 mmol/L (3.5-5.1); TOTAL BILIRUBIN 0.7 mg/dL (0.2-1.0); TOTAL PROTEIN 6.6 g/dL (6.4-8.2)
[2018-12-29] MEDS: LISINOPRIL 5 MG TABLET. PO SCH (08:30)
[2018-12-29] MEDS: FUROSEMIDE 20 MG TABLET PO SCH (08:30)
[2018-12-29] MEDS: RANOLAZINE 500 MG TAB.ER.12H PO SCH ×2 (08:31→20:42)
[2018-12-29] MEDS: BUDESONIDE 0.5 MG/2 ML NEBU NEB SCH ×2 (11:36→20:00)
[2018-12-29 15:50] VITALS: BP 101/64
[2018-12-29] MEDS: WARFARIN 4 MG TABLET. PO SCH (17:06)
[2018-12-29] MEDS: metFORMIN 500 MG TABLET PO SCH (17:06)
[2018-12-29] MEDS: FLUoxetine HCL 10 MG CAPSULE PO SCH (20:40)
[2018-12-29] MEDS: ATORVASTATIN CALCIUM 20 MG TABLET PO SCH (20:41)
[2018-12-29] MEDS: METOPROLOL SUCC 24HR ER 50 MG TAB.ER.24H. PO SCH (20:41)
--- NOTE | 2018-12-29 21:58 | PDOC ---
Exam Note: Scott Note: Please also refer to the separate dictated note~for this date of service dictated separately.~Patient seen individually. Discussed the patient with Nursing staff reviewed the chart.~Reviewed interim history and current functioning. Reviewed vital signs,~Labs/ Radiology~and current medications noted below. Continue current treatment with the changes noted in the dictated addendum note Assessment: Vital Signs/I&O: Vital Signs Date Time Temp Pulse Resp B/P (MAP) Pulse Ox O2 Delivery O2 Flow Rate FiO2 12/29/18 20:42 90 101/64 12/29/18 20:10 98 Room Air 12/29/18 15:50 97.3 20 12/29/18 05:54 1.5 I & O 12/28/18 12/28/18 12/29/18 15:00 23:00 07:00 Intake Total 840 ml 480 ml 240 ml Balance 840 ml 480 ml 240 ml Labs: Laboratory Tests Test 12/29/18 07:26 White Blood Count 3.5 x10^3/uL (4.0-11.0) L Red Blood Count 3.54 x10^6/uL (4.30-5.70) L Hemoglobin 12.1 g/dL (13.0-17.5) L Hematocrit 35.4 % (39.0-53.0) L Mean Corpuscular Volume 100 fL (79-100) Mean Corpuscular Hemoglobin 34 pg (25-35) Mean Corpuscular Hemoglobin Concent 34 g/dL (31-37) Red Cell Distribution Width 15.1 % (11.5-14.5) H Platelet Count 106 x10^3/uL (140-400) L Neutrophils (%) (Auto) 63 % (31-73) Lymphocytes (%) (Auto) 24 % (24-48) Monocytes (%) (Auto) 9 % (0-9) Eosinophils (%) (Auto) 2 % (0-3) Basophils (%) (Auto) 1 % (0-3) Neutrophils # (Auto) 2.2 x10^3uL (1.8-7.7) Lymphocytes # (Auto) 0.8 x10^3/uL (1.0-4.8) L Monocytes # (Auto) 0.3 x10^3/uL (0.0-1.1) Eosinophils # (Auto) 0.1 x10^3/uL (0.0-0.7) Basophils # (Auto) 0.0 x10^3/uL (0.0-0.2) Prothrombin Time 27.4 SEC (9.4-11.4) H Prothrombin Time INR 2.6 (0.9-1.1) H Sodium Level 138 mmol/L (136-145) Potassium Level 4.2 mmol/L (3.5-5.1) Chloride Level 102 mmol/L (98-107) Carbon Dioxide Level 25 mmol/L (21-32) Anion Gap 11 (6-14) Blood Urea Nitrogen 18 mg/dL (8-26) Creatinine 1.1 mg/dL (0.7-1.3) Estimated GFR (Cockcroft-Gault) 64.4 BUN/Creatinine Ratio 16 (6-20) Glucose Level 120 mg/dL (70-99) H Calcium Level 8.6 mg/dL (8.5-10.1) Total Bilirubin 0.7 mg/dL (0.2-1.0) Aspartate Amino Transferase (AST) 23 U/L (15-37) Alanine Aminotransferase (ALT) 20 U/L (16-63) Alkaline Phosphatase 73 U/L (46-116) Total Protein 6.6 g/dL (6.4-8.2) Albumin 3.8 g/dL (3.4-5.0) Albumin/Globulin Ratio 1.4 (1.0-1.7) Current Medications: Meds: Current Medications Medications (Trade) Dose Ordered Sig/Emily Route PRN Reason Start Time Stop Time Status Last Admin Dose Admin Warfarin Sodium (Coumadin) 4 mg DAILY16 PO 12/29/18 16:00 12/29/18 17:06 I have reviewed the current psychotropics carefully including drug interactions. Risk benefit ratio favors no change other than as noted in my dictated progress note. Diagnosis: Problems: (1) Anxiety disorder (2) Major depressive disorder, recurrent episode (3) Impulse control disorder RICCARDO YADAV MD Dec 29, 2018 21:58
[2018-12-30 05:16] VITALS: BP 108/71
[2018-12-30] MEDS: ALBUTEROL SULFATE 2.5 MG/3 ML NEBU. NEB SCH ×4 (05:28→21:34)
[2018-12-30] MEDS: PANTOPRAZOLE 40 MG TABLET. PO SCH (07:55)
[2018-12-30] MEDS: FUROSEMIDE 20 MG TABLET PO SCH (07:56)
[2018-12-30] MEDS: LISINOPRIL 5 MG TABLET. PO SCH (07:56)
[2018-12-30] MEDS: RANOLAZINE 500 MG TAB.ER.12H PO SCH ×2 (07:56→20:11)
[2018-12-30] MEDS: BUDESONIDE 0.5 MG/2 ML NEBU NEB SCH ×2 (11:07→21:34)
[2018-12-30] MEDS: MAG HYDROX/AL HYDROX/SIMETH 30 ML ORAL.SUSP PO PRN (14:20)
[2018-12-30 16:31] VITALS: BP 124/79
[2018-12-30] MEDS: metFORMIN 500 MG TABLET PO SCH (17:05)
[2018-12-30] MEDS: WARFARIN 4 MG TABLET. PO SCH (17:05)
[2018-12-30] MEDS: FLUoxetine HCL 10 MG CAPSULE PO SCH (20:10)
[2018-12-30] MEDS: METOPROLOL SUCC 24HR ER 50 MG TAB.ER.24H. PO SCH (20:10)
[2018-12-30] MEDS: ATORVASTATIN CALCIUM 20 MG TABLET PO SCH (20:11)
--- NOTE | 2018-12-30 21:48 | PDOC ---
Exam Note: Scott Note: Please also refer to the separate dictated note~for this date of service dictated separately.~Patient seen individually. Discussed the patient with Nursing staff reviewed the chart.~Reviewed interim history and current functioning. Reviewed vital signs,~Labs/ Radiology~and current medications noted below. Continue current treatment with the changes noted in the dictated addendum note Assessment: Vital Signs/I&O: Vital Signs Date Time Temp Pulse Resp B/P (MAP) Pulse Ox O2 Delivery O2 Flow Rate FiO2 12/30/18 20:11 72 124/79 12/30/18 20:05 99 Room Air 12/30/18 16:31 97.4 16 12/29/18 05:54 1.5 I & O 12/29/18 12/29/18 12/30/18 15:00 23:00 07:00 Intake Total 1080 ml 480 ml 120 ml Balance 1080 ml 480 ml 120 ml Current Medications: I have reviewed the current psychotropics carefully including drug interactions. Risk benefit ratio favors no change other than as noted in my dictated progress note. Diagnosis: Problems: (1) Anxiety disorder (2) Major depressive disorder, recurrent episode (3) Impulse control disorder RICCARDO YADAV MD Dec 30, 2018 21:48
--- NOTE | 2018-12-30 22:16 | PN ---
DATE: 12/28/2018 PSYCHIATRIC PROGRESS NOTE This late entry 12/28/2018 covers the elements not covered in my initial note. SUBJECTIVE: I met with the patient in the evening of 12/28/2018. According to CLAYTON Herrera, the patient slept 7-3/4 hours previous night. At night, he was irritable, but better during the day on 12/28/2018. Still depressed, anxious, minimizes this. Denies suicidal ideation. REVIEW OF SYSTEMS: No CV, , pulmonary, eye, ENT system symptoms on review. Reliability is fair. He ambulates with a walker. MENTAL STATUS EXAM: Oriented reasonably. Speech has some latency, coherent. Abstraction fair, computation impaired, language function intact, attention span short. Mood and affect somewhat dysphoric, anxious, but improved. No suicidal ideation. LABORATORY DATA: Reviewed. IMPRESSION: Major depressive disorder in partial remission; anxiety disorder, unspecified. PLAN: No change from initial note. RICCARDO YADAV MD DR: MANPREET/alejandro JOB#: [id number] / [id number]
[2018-12-31] MEDS ORDERED: ACET325T9 PO (00:26)
[2018-12-31] MEDS ORDERED: FLUO10CA13 PO (00:29)
[2018-12-31] MEDS ORDERED: CHOL500021 PO (00:29)
[2018-12-31] MEDS ORDERED: MAG30ORA2 PO (00:31)
[2018-12-31] MEDS ORDERED: MAGN2400 PO (00:32)
[2018-12-31] MEDS ORDERED: METH28OI2 TP (00:33)
[2018-12-31] MEDS ORDERED: PANT40TA5 PO (00:36)
[2018-12-31] MEDS ORDERED: POLY17PO5 PO (00:37)
--- NOTE | 2018-12-31 03:34 | PN ---
DATE: 12/29/2018 PSYCHIATRIC PROGRESS NOTE This late entry 12/29/2018 covers elements not covered in my initial note. SUBJECTIVE: I met with the patient evening of 12/29/2018 and staffed at a treatment team meeting with the entire team morning of 12/29/2018 and the patient attended this treatment team meeting. Reviewed the patient's history, diagnosis, current medications progress. The patient slept 7-1/4 hours previous night. Appetite 75-100%. Previous night, he was calm, cooperative, had a good night, gets a little anxious, dysphoric at times, but showing improvement. REVIEW OF SYSTEMS: Ambulation impaired with walker. No CV, , pulmonary, eye system symptoms on review. MENTAL STATUS EXAMINATION: Oriented reasonably. Speech is coherent, abstraction fair, computation impaired, language function intact. Mood and affect still somewhat dysphoric, anxious, but no suicidal ideation. Intellect average. Insight good. Judgment intact to standard questioning. LABORATORY DATA: Reviewed. IMPRESSION: Major depressive disorder, recurrent, in partial remission; anxiety disorder, unspecified; mild cognitive impairment. PLAN: Continue current psychotropics, Prozac 10 mg at bedtime. May need to increase this, but the patient is insistent on transitioning home and we discussed at length activities that could be involved with post-discharge to keep himself busy in outpatient psychotherapy and medication management at the [facility] in [place], [place]. RICCARDO YADAV MD DR: MANPREET/alejandro JOB#: [id number] / [id number]
[2018-12-31] MEDS: ALBUTEROL SULFATE 2.5 MG/3 ML NEBU. NEB SCH ×3 (04:45→15:37)
[2018-12-31 05:25] VITALS: BP 106/76
[2018-12-31] MEDS: PANTOPRAZOLE 40 MG TABLET. PO SCH (07:30)
[2018-12-31] MEDS: RANOLAZINE 500 MG TAB.ER.12H PO SCH (08:23)
[2018-12-31] MEDS: FUROSEMIDE 20 MG TABLET PO SCH (09:00)
[2018-12-31] MEDS: CHOLECALCIFEROL (VITAMIN D3) 50,000 UNIT CAPSULE PO SCH (09:00)
[2018-12-31] MEDS: LISINOPRIL 5 MG TABLET. PO SCH (09:00)
[2018-12-31] MEDS: BUDESONIDE 0.5 MG/2 ML NEBU NEB SCH (11:04)
[2018-12-31 15:38] VITALS: BP 112/71
[2018-12-31] MEDS: WARFARIN 4 MG TABLET. PO SCH (16:00)
[2018-12-31] MEDS: metFORMIN 500 MG TABLET PO SCH (16:11)
--- NOTE | 2018-12-31 22:10 | PDOC ---
Exam Note: Scott Note: Please also refer to the separate dictated note~for this date of service dictated separately.~Patient seen individually. Discussed the patient with Nursing staff reviewed the chart.~Reviewed interim history and current functioning. Reviewed vital signs,~Labs/ Radiology~and current medications noted below. Continue current treatment with the changes noted in the dictated addendum note Assessment: Vital Signs/I&O: Vital Signs Date Time Temp Pulse Resp B/P (MAP) Pulse Ox O2 Delivery O2 Flow Rate FiO2 12/31/18 15:38 96 Room Air 12/31/18 15:38 97.8 75 16 112/71 (85) 12/31/18 05:03 1.5 I & O 0 12/30/18 12/30/18 12/31/18 15:00 23:00 07:00 Intake Total 1200 ml 480 ml 240 ml Balance 1200 ml 480 ml 240 ml Current Medications: I have reviewed the current psychotropics carefully including drug interactions. Risk benefit ratio favors no change other than as noted in my dictated progress note. Diagnosis: Problems: (1) Anxiety disorder (2) Major depressive disorder, recurrent episode (3) Impulse control disorder RICCARDO YADAV MD Dec 31, 2018 22:10
--- NOTE | 2019-01-02 00:31 | PN ---
DATE: 12/30/2018 PSYCHIATRIC PROGRESS NOTE This late entry 12/30/2018 covers elements not covered in my initial note. SUBJECTIVE: I met with the patient evening of 12/30/2018. Per CLAYTON Herrera, the patient slept 4-1/2 hours previous night. He has been appropriate, somewhat dysphoric at times, but verbal, interactive. REVIEW OF SYSTEMS: Ambulation impaired with walker. No CV, , pulmonary, eye, ENT system symptoms on review. Very verbal, open, forthcoming individually with me. MENTAL STATUS EXAM: Oriented reasonably. Speech is coherent, abstraction fair, computation impaired, language function intact, attention span fair. Mood and affect is improved. No suicidal ideation. LABORATORY DATA: Reviewed. IMPRESSION: Unchanged from initial note. PLAN: No change from initial note. MAN Renetta YADAV MD DR: MANPREET/alejandro JOB#: [id number] / [id number]
--- NOTE | 2019-01-02 09:05 | DS ---
DATE OF DISCHARGE: 12/31/2018 PSYCHIATRIC PROGRESS NOTE This is a late entry 12/31/2018 covers elements not covered in my initial note. REASON FOR ADMISSION: Please refer to the admission history for details. Briefly, the patient is an 78-year-old male referred from home as an emergency via the ER at [facility] on account of worsening symptoms of depression with suicidal ideation, worsening anxiety, insomnia, irritability, unable to function on his own and potential danger to himself and failure for outpatient psychiatric interventions. He had a telepsychiatry consultation in the ER, recommending inpatient stabilization. SIGNIFICANT FINDINGS AND CLINICAL COURSE: Following admission, the patient was seen daily individually by myself from a psychiatric standpoint, medical followup with Dr. Willard. The patient was depressed, withdrawn, talked about the upcoming divorce from his who is quite a bit younger than him. He states he was in agreement with the divorce, so that she could do things with some on her own age since his disability prevented him from doing this, but nevertheless after many years of marriage, she felt quite overwhelmed and depressed and suicidal, thus prompting this admission. The patient was initially started on Zoloft, but complained of GI symptoms and tiredness on it and this was changed to Prozac 10 mg p.o. at bedtime. He gradually appeared to show an improved mood, slightly improved obsessiveness, anxiety and ruminative thinking about the divorce and his life going forward without his , though he seemed to understand the reasons for the divorce and was accepting of this. Prior to discharge on 12/31/2018. REVIEW OF SYSTEMS: No CV, , pulmonary, eye, ENT system symptoms on review. Gait somewhat unsteady with walker. MENTAL STATUS EXAM: Reasonably oriented. Speech is coherent, abstraction fair, computation impaired, language function intact. Mood and affect somewhat improved. No suicidal ideation. CONDITION AT DISCHARGE: Improved. FINAL DIAGNOSES: Major depressive disorder, recurrent, in partial remission; anxiety disorder, unspecified; impulse control disorder, unspecified. Rest unchanged from admission. DISCHARGE MEDICATIONS: Please refer to the MRAD. DISCHARGE INSTRUCTIONS: Outpatient psychiatric followup at the [facility] and other activities arranged prior to his discharge. Medical followup with his primary care physician. Time for discharge day management greater than 30 minutes. MAN Renetta YADAV MD DR: Sharon JOB#: [id number] / [id number]
== END 2018-12-31 16:00 | disposition home health service (06) | DRG 885 ==
LOC: ER 11:11 → GEROPSY 16:13
PROVIDERS: ADMIT Psychiatry & Neurology Psychiatry; ATTEND Psychiatry & Neurology Psychiatry
PROC: 5A09357 Assistance with Respiratory Ventilation, Less than 24 Consecutive Hours, Continuous Positive Airway Pressure (ICD-10-PCS; principal; 2018-12-24)
PROC: 5A09357 Assistance with Respiratory Ventilation, Less than 24 Consecutive Hours, Continuous Positive Airway Pressure (ICD-10-PCS; 2018-12-25)
PROC: 5A09357 Assistance with Respiratory Ventilation, Less than 24 Consecutive Hours, Continuous Positive Airway Pressure (ICD-10-PCS; 2018-12-26)
PROC: 5A09357 Assistance with Respiratory Ventilation, Less than 24 Consecutive Hours, Continuous Positive Airway Pressure (ICD-10-PCS; 2018-12-27)
PROC: 5A09357 Assistance with Respiratory Ventilation, Less than 24 Consecutive Hours, Continuous Positive Airway Pressure (ICD-10-PCS; 2018-12-28)
PROC: 5A09357 Assistance with Respiratory Ventilation, Less than 24 Consecutive Hours, Continuous Positive Airway Pressure (ICD-10-PCS; 2018-12-31)
DX: F33.3 Major depressive disorder, recurrent, severe with psychotic symptoms (principal); R45.851 Suicidal ideations; I11.0 Hypertensive heart disease with heart failure; F41.9 Anxiety disorder, unspecified; F63.9 Impulse disorder, unspecified; G31.84 Mild cognitive impairment of uncertain or unknown etiology; I50.9 Heart failure, unspecified; J44.9 Chronic obstructive pulmonary disease, unspecified; Z95.0 Presence of cardiac pacemaker; E66.01 Morbid (severe) obesity due to excess calories; E55.9 Vitamin D deficiency, unspecified; I48.91 Unspecified atrial fibrillation; M15.9 Polyosteoarthritis, unspecified; Z87.891 Personal history of nicotine dependence; Z79.899 Other long term (current) drug therapy; Z79.01 Long term (current) use of anticoagulants; R79.1 Abnormal coagulation profile; I25.10 Atherosclerotic heart disease of native coronary artery without angina pectoris; H91.90 Unspecified hearing loss, unspecified ear; G47.33 Obstructive sleep apnea (adult) (pediatric); D64.9 Anemia, unspecified
CPT/HCPCS: 36415; 80053; 80061; 80307; 80329; 81001; 82306; 83036; 83540; 83550; 83735; 84436; 84443; 84480; 85025; 85610; 85730; 86592; 90471; 90686; 93005; 94640; G0480; J7613; J7626; 82003; 99285-25

== ENCOUNTER 2019-03-31 14:34 | Emergency (ER) | payer MEDICARE ==
[~2019-03-31 14:34] MED LIST: ACET325T9 PO; ALBU2.5V5 NEB; CHOL500021 PO; CRESTOR10 MG PO; FLUO10CA13 PO; FLUT1BLS IH; FURO-69 PO; MAG30ORA2 PO; MAGN2400 PO; METF500T16 PO; METH28OI2 TP; METO-247 PO; NITR0.4T22 SL; PANT40TA5 PO; POLY17PO5 PO; RAMI2.5C2 PO; RANO10002 PO; TRAM50TA PO; WARF-31 PO; WARF2TAB96 PO; WARF4TAB64 PO
[2019-03-31] MEDS ORDERED: NEOMY/BACITR/POLYMYXIN OINT PACKET. TP ONE ×2 (15:01→15:15)
--- NOTE | 2019-03-31 15:31 | RAD ---
EXAM: Chest, single view. HISTORY: Dyspnea on exertion. COMPARISON: None. FINDINGS: A frontal view of the chest is obtained. There is no infiltrate, pleural effusion or pneumothorax. There is a prominent cardiac silhouette, a component of which is accentuated due to portable technique. There is a single lead cardiac pacemaker. IMPRESSION: 1. Prominent chronic silhouette. 2. No acute pulmonary finding. Electronically signed by: Elysia Vergara MD (03/31/2019 3:28 PM) [place] [id number]
--- NOTE | 2019-03-31 15:37 | PHYS DOC ---
Past History Past Medical History: A-Fib, CAD, COPD, Hypertension, Other Additional Past Medical Histor: sleep apnea Past Surgical History: Cancer Surgery, Other Additional Past Surgical Histo: Pacemaker, back Smoking: Quit Greater Than 1 Year Alcohol Use: None Drug Use: None Adult General Chief Complaint Chief Complaint: LACERATION/AVULSION HPI HPI Patient is an 78-year-old male who presents with report of fall at home. Patient states that he had tripped over a rug and fell onto his left forearm, sustaining skin tears. Patient indicates that he is on Coumadin. He denies any other injuries and states that his only injury is the skin tears. Patient also indicates that he has been having some increase in swelling in his lower extremities and states that he has gained a bit of weight since being discharged from the hospital recently. He does admit to some dyspnea on exertion. He denies any chest pain however.[] Review of Systems Review of Systems Constitutional: Denies fever or chills [] Respiratory: Denies cough. Complains of exertional shortness of breath [] Cardiovascular: No additional information not addressed in HPI [] GI: Denies abdominal pain, nausea, vomiting or diarrhea [] Integument: Positive skin tears, left forearm[] Neurologic: Denies headache, focal weakness or sensory changes [] All other systems were reviewed and found to be within normal limits, except as documented in this note. Current Medications Current Medications Current Medications Medications (Trade) Dose Ordered Sig/Emily Start Time Stop Time Status Last Admin Dose Admin Neomycin/ Polymyxin/ Bacitracin (Triple Antibiotic Ointment) 1 pkt STK-MED ONCE 03/31/19 15:01 03/31/19 15:01 DC Allergies Allergies Allergies Coded Allergies Type Severity Reaction Last Updated Verified No Known Drug Allergies 12/22/18 No Physical Exam Physical Exam Constitutional: Well developed, well nourished, no acute distress, non-toxic appearance. [] HENT: Normocephalic, atraumatic, bilateral external ears normal, oropharynx moist, no oral exudates, nose normal. [] Eyes: PERRLA, EOMI, conjunctiva normal, no discharge. [] Neck: Normal range of motion, no tenderness, supple, no stridor. [] Cardiovascular:Heart rate regular rhythm, no murmur [] Lungs & Thorax: Bilateral breath sounds clear to auscultation [] Abdomen: Bowel sounds normal, soft, no tenderness, no masses, no pulsatile masses. [] Skin: Warm, dry, numerous skin tears noted to left forearm. [] Extremities: No tenderness, no cyanosis, no clubbing, ROM intact, with 2+ lower extremity pitting edema. [] Neurologic: Alert and oriented X 3, no focal deficits noted. [] EKG EKG [] Radiology/Procedures Radiology/Procedures [] Impressions: PROCEDURE: PORTABLE CHEST 1V EXAM: Chest, single view. HISTORY: Dyspnea on exertion. COMPARISON: None. FINDINGS: A frontal view of the chest is obtained. There is no infiltrate, pleural effusion or pneumothorax. There is a prominent cardiac silhouette, a component of which is accentuated due to portable technique. There is a single lead cardiac pacemaker. IMPRESSION: 1. Prominent chronic silhouette. 2. No acute pulmonary finding. Electronically signed by: Elysia Vergara MD (03/31/2019 3:28 PM) [facility] DICTATED AND SIGNED BY: ELYSIA VERGARA MD DATE: 03/31/19 1528 Course & Med Decision Making Course & Med Decision Making Pertinent Labs and Imaging studies reviewed. (See chart for details) [] Dragon Disclaimer Dragon Disclaimer This electronic medical record was generated, in whole or in part, using a voice recognition dictation system. Departure Departure: Impression: Primary Impression: Skin tear Additional Impression: Lower extremity edema Disposition: 01 HOME, SELF-CARE Condition: STABLE Referrals: EZEQUIEL GONZALES MD (PCP) Patient Instructions: Peripheral Edema, Skin Tear Care Problem Qualifiers LUISITO BOWERS Jr. DO Mar 31, 2019 15:37
[2019-03-31 15:50] VITALS: BP 126/76
[2019-03-31 16:22] LABS: BASO % 1 % (0-3); EOS # 0.1 x10^3/uL (0.0-0.7); EOS % 2 % (0-3); HEMOGLOBIN 11.6 g/dL (13.0-17.5); LYMPH % 25 % (24-48); MEAN CORPUSCULAR HEMOGLOBIN 34 pg (25-35); MEAN CORPUSCULAR HGB CONC 34 g/dL (31-37); MEAN CORPUSCULAR VOLUME 99 fL (79-100); MONO # 0.4 x10^3/uL (0.0-1.1); MONO % 9 % (0-9); NEUT # 2.5 x10^3uL (1.8-7.7); NEUT % 62 % (31-73); PLATELET COUNT 156 x10^3/uL (140-400); RED BLOOD COUNT 3.44 x10^6/uL (4.30-5.70); RED CELL DISTRIBUTION WIDTH 14.7 % (11.5-14.5); WHITE BLOOD COUNT 3.9 x10^3/uL (4.0-11.0)
[2019-03-31 16:24] LABS: CALCIUM 8.8 mg/dL (8.5-10.1); CREATININE 1.2 mg/dL (0.7-1.3); GFR 58.3; POTASSIUM 4.1 mmol/L (3.5-5.1)
[2019-03-31 16:37] LABS: ALBUMIN 3.6 g/dL (3.4-5.0); ALBUMIN/GLOBULIN RATIO 1.1 (1.0-1.7); TOTAL BILIRUBIN 0.9 mg/dL (0.2-1.0); TOTAL PROTEIN 6.9 g/dL (6.4-8.2)
== END 2019-03-31 18:01 | disposition home or self-care (01) ==
LOC: ER 14:34
DX: S51.812A Laceration without foreign body of left forearm, initial encounter (principal); R60.0 Localized edema; R06.02 Shortness of breath; I48.91 Unspecified atrial fibrillation; I25.10 Atherosclerotic heart disease of native coronary artery without angina pectoris; J44.9 Chronic obstructive pulmonary disease, unspecified; I10 Essential (primary) hypertension; Z87.891 Personal history of nicotine dependence; Z95.0 Presence of cardiac pacemaker; W01.0XXA Fall on same level from slipping, tripping and stumbling without subsequent striking against object, initial encounter; Y93.89 Activity, other specified; Y92.098 Other place in other non-institutional residence as the place of occurrence of the external cause; Y99.8 Other external cause status
CPT/HCPCS: 36415; 71045; 80053; 83880; 84484; 85025; 85610; 99285